=== PATIENT | male | born 1940 | race Caucasian/White ===

== ENCOUNTER 2020-01-21 09:32 | Emergency (ER) | payer BC, SELFPAY ==
[2020-01-21 09:50] VITALS: BP 166/97; PULSE 78; RESP 18; TEMP 36.6; O2SAT 100
--- NOTE | 2020-01-21 10:06 | ED.MALEGU ---
HPI - Male Genitourinary General Chief complaint: Urogenital-Male Stated complaint: Head of penis/redness/infected Time Seen by Provider: 01/21/20 10:08 Source: patient and RN notes reviewed Mode of arrival: ambulatory Limitations: no limitations History of Present Illness HPI Narrative: 79-year-old male presents with concern for red, sore penis. He reports red, sore head of his penis for 3 days. He denies dysuria, hematuria, frequency, penile discharge, testicular pain, testicular redness, testicular swelling. Reports the shaft of his penis is not affected. Denies exposure to STDs. Reports he wore an adult diaper and symptoms started after that. MD Complaint: other (Rash) Related Data Home Medications Medication Instructions Recorded Confirmed diazepam [Valium] 5 mg PO HS PRN 09/10/19 01/21/20 aspirin 81 mg PO DAILY 01/21/20 01/21/20 ezetimibe 10 mg PO DAILY 01/21/20 01/21/20 lisinopril-hydrochlorothiazide 1 tablet PO DAILY 01/21/20 01/21/20 metoprolol tartrate 50 mg PO DAILY 01/21/20 01/21/20 nitroglycerin 0.4 mg SUBLINGUAL ONCE 01/21/20 01/21/20 rosuvastatin 20 mg PO DAILY 01/21/20 01/21/20 Allergies Allergy/AdvReac Type Severity Reaction Status Date / Time Sulfa (Sulfonamide Allergy Unknown Unknown Verified 01/21/20 10:06 Antibiotics) Review of Systems Review of Systems: Narrative: CONSTITUTIONAL: Denies malaise, chills, sweats, or fever. GASTROINTESTINAL: Denies abdominal pain, nausea, vomiting, diarrhea, bloody, or mucous stools. GENITOURINARY: Denies dysuria, frequency, testicular pain, penile discharge, or hematuria. Reports penile swelling, redness, pain SKIN: Denies rash or itching. MUSCULOSKELETAL: Denies myalgia. All systems reviewed & are unremarkable except as noted in HPI and below PMFSH Social History Social History Smoking status: Never smoker Alcohol intake: current Gender identity (if verbalized by the patient): Male Comments At time of signature, agree with nursing past medical, surgical, social and family history. There is no relevant family history pertinent to the presenting complaint Exam Narrative: Exam Narrative: GENERAL: Well-appearing, well-nourished, and in no acute distress. HEAD: Normocephalic, atraumatic. EYES: PERRLA, conjunctivae clear ENT: Mucous membranes moist. NECK: Supple. CHEST: No respiratory distress. Speaks in full sentences. HEART: Regular rate and rhythm. SKIN: Warm, dry, no rash. NEURO: Alert and oriented x3. PSYCH: Normal mood and affect : Penis: Yes circumcised Meatus: meatus normal Scrotum: scrotum normal Testes: Testes normal Male genitals images: 1. Erythema, mild edema, honey colored crust. Course Course Emergency Course: Patient is aware of diagnosis, understands and agrees to treatment plan. Anticipatory guidance given. Patient agrees to follow-up as directed and is aware of reasons to seek care at the emergency department. Portions of this record may have been created with voice recognition software Vital Signs Vital signs: Vital Signs Temperature 97.8 F 01/21/20 09:50 Pulse Rate 78 01/21/20 09:50 Respiratory Rate 18 01/21/20 09:50 Blood Pressure 166/97 H 01/21/20 09:50 Pulse Oximetry 100 01/21/20 09:50 Temperature 97.8 F 01/21/20 09:50 Pulse Rate 78 01/21/20 09:50 Respiratory Rate 18 01/21/20 09:50 Blood Pressure 166/97 H 01/21/20 09:50 Pulse Oximetry 100 01/21/20 09:50 Reviewed. Patient has history of hypertension MDM - Male Genitourinary MDM Narrative Medical decision making narrative: Exam findings show no acute concerns or changes; patient is non-toxic appearing and is in no distress. Patient is appropriate for outpatient treatment and follow-up. Differential Diagnosis Differential diagnosis: Likely urinary tract infection, priapism, urethritis, epididymitis, genital herpes simplex and prostatitis Critical Care Ti
== END 2020-01-21 10:29 | disposition home or self-care (01) ==
PROVIDERS: Emergency Provider Nurse Practitioner; PCP Internal Medicine
DX: L01.00 Impetigo, unspecified (principal); E78.00 Pure hypercholesterolemia, unspecified; I10 Essential (primary) hypertension; F41.9 Anxiety disorder, unspecified
CPT/HCPCS: 99213; G0463

== ENCOUNTER 2020-04-30 09:11 | Emergency (ER) | payer BC, SELFPAY ==
[2020-04-30 09:30] VITALS: BP 105/69; PULSE 76; RESP 16; TEMP 36.4; O2SAT 100
--- NOTE | 2020-04-30 09:46 | ED.SKABFB ---
HPI - Skin/Abscess/Foreign Bdy General Chief complaint: Skin/Abscess/Foreign Body Stated complaint: spots on arm Time Seen by Provider: 04/30/20 09:35 Source: patient Mode of arrival: ambulatory Limitations: no limitations History of Present Illness HPI narrative: Nico Carmichael is a 79 yo male with PMH of hypertension, high cholesterol, small bowel obstruction, comes to express care with insect bites that are enlarged and itching. The current 1 started last night Related Data Home Medications Medication Instructions Recorded Confirmed aspirin 81 mg PO DAILY 04/30/20 04/30/20 diazepam [Valium] 5 mg PO DAILY 04/30/20 04/30/20 docusate sodium 100 mg PO DAILY 04/30/20 04/30/20 ezetimibe [Zetia] 10 mg PO DAILY 04/30/20 04/30/20 lisinopril-hydrochlorothiazide 1 tablet PO DAILY 04/30/20 04/30/20 [Zestoretic] metoprolol tartrate [Lopressor] 50 mg PO DAILY 04/30/20 04/30/20 rosuvastatin [Crestor] 20 mg PO DAILY 04/30/20 04/30/20 Allergies Allergy/AdvReac Type Severity Reaction Status Date / Time Sulfa (Sulfonamide Allergy Unknown Unknown Verified 04/30/20 09:37 Antibiotics) Review of Systems Review of Systems: Narrative: CONSTITUTIONAL: Denies fever, chills, sweats. EYES: Denies visual changes, redness, discharge. ENT: Denies rhinorrhea, congestion, sore throat, otalgia. CARDIOVASCULAR: Denies chest pain, palpitations, edema. RESPIRATORY: Denies dyspnea, wheezing, cough GASTROINTESTINAL: Denies abdominal pain, nausea, vomiting, diarrhea. GENITOURINARY: Denies dysuria, hematuria, abnormal discharge SKIN: Has itching and welts on arms, greater on left NEUROLOGIC: Denies numbness, or focal weakness. PSYCHIATRIC: Denies anxiety or depression. [facility] Family History Family History Other Hypertension Social History Social History Smoking status: Never smoker Alcohol intake: current Gender identity (if verbalized by the patient): Male Comments At time of signature, I agree with nursing past medical, surgical, social and family history. There is no relevant family history pertinent to the presenting complaint. Exam Narrative: Exam Narrative: GENERAL: This is a well-nourished, well-developed patient, in no distress. HEAD: normocephalic, atraumatic. EYES: Sclera clear/white. Vision is grossly intact. EARS: External ears normal, auditory canals clear and without drainage, TMs normal without perforation. Hearing grossly intact. NOSE: External nose normal without nasal discharge, nares without redness, no rhinorrhea. THROAT: Mucous membranes moist, NECK: Neck supple, r CARDIOVASCULAR: Regular rate and rhythm without murmurs, gallops, or rubs. RESPIRATORY: Clear to auscultation. Breath sounds equal bilaterally. No wheezes, rales, or rhonchi. GASTROINTESTINAL: Abdomen soft, non-tender, SKIN: warm, intact with 8 x 8 indurated red area on left arm, small bites on left and right arms and legs NEURO: awake, alert, and oriented to person, place and time. There were no obvious focal neurologic abnormalities. Steady gait EXTREMITIES: Normal range of motion. BACK: Nontender without deformity Course Course Emergency Course: Started on Benadryl and Claritin-continue with hydrocortisone and triple antibiotic ointment to the areas Vital Signs Vital signs: Vital Signs Temperature 97.5 F L 04/30/20 09:30 Pulse Rate 76 04/30/20 09:30 Respiratory Rate 16 04/30/20 09:30 Blood Pressure 105/69 04/30/20 09:30 Pulse Oximetry 100 04/30/20 09:30 Temperature 97.5 F L 04/30/20 09:30 Pulse Rate 76 04/30/20 09:30 Respiratory Rate 16 04/30/20 09:30 Blood Pressure 105/69 04/30/20 09:30 Pulse Oximetry 100 04/30/20 09:30 MDM - Skin/Abscess/Foreign Bdy Differential Diagnosis Differential diagnosis: Likely abscess of skin or subcutaneous tissue, urticaria, insect bites, contact dermatitis an
== END 2020-04-30 10:02 | disposition home or self-care (01) ==
PROVIDERS: Emergency Provider Nurse Practitioner; PCP Internal Medicine
DX: S50.862A Insect bite (nonvenomous) of left forearm, initial encounter (principal); W57.XXXA Bitten or stung by nonvenomous insect and other nonvenomous arthropods, initial encounter; I10 Essential (primary) hypertension; E78.00 Pure hypercholesterolemia, unspecified
CPT/HCPCS: 99213; G0463

== ENCOUNTER 2020-06-25 13:10 | Emergency (ER) | payer BC, SELFPAY ==
[2020-06-25 13:19] VITALS: BP 105/81; PULSE 86; RESP 20; TEMP 36.8; O2SAT 100
--- NOTE | 2020-06-25 13:43 | ED.GENADULT ---
HPI - General Adult General Chief complaint: Skin/Abscess/Foreign Body Stated complaint: rash Time Seen by Provider: 06/25/20 13:40 Source: patient Mode of arrival: ambulatory History of Present Illness HPI narrative: 79 years old white male complaining of severe itchy rash at the right arm and lateral side of the right hip started 6 7 weeks ago. Patient been using Zyrtec once a day for the last 30 days and [id number] antifungal cream without any improvement.. Patient denies any fever, chills, nausea, vomiting. Related Data Home Medications Medication Instructions Recorded Confirmed aspirin 81 mg PO DAILY 04/30/20 04/30/20 diazepam [Valium] 5 mg PO DAILY 04/30/20 04/30/20 docusate sodium 100 mg PO DAILY 04/30/20 04/30/20 ezetimibe [Zetia] 10 mg PO DAILY 04/30/20 04/30/20 lisinopril-hydrochlorothiazide 1 tablet PO DAILY 04/30/20 04/30/20 [Zestoretic] metoprolol tartrate [Lopressor] 50 mg PO DAILY 04/30/20 04/30/20 rosuvastatin [Crestor] 20 mg PO DAILY 04/30/20 04/30/20 Allergies Allergy/AdvReac Type Severity Reaction Status Date / Time Sulfa (Sulfonamide Allergy Unknown Unknown Verified 04/30/20 09:37 Antibiotics) [facility] Family History Family History Other Hypertension Social History Social History Smoking status: Never smoker Alcohol intake: current Gender identity (if verbalized by the patient): Male Exam Narrative: Exam Narrative: General appearance: Well-developed, well-nourished Skin: Normal color. Maculopapular rash right arm and lateral side of the right hip. Head: Normocephalic, nontraumatic Eyes: Clear conjunctiva ENT: Oropharynx normal, ears normal, nose normal Neck: Supple, nontender Chest and respiratory: Airway patent, no respiratory distress, no accessory muscle use Heart: Regular rate/rhythm Abdomen: Soft, nontender, no organomegaly, quiet bowel sounds Vascular: Normal peripheral pulses, normal capillary refill. Musculoskeletal: Normal range of motion, nontender back Neurologic: Alert and oriented ?3, [employer] is normal as tested, no gross motor deficit Course Course Emergency Course: Stable Vital Signs Vital signs: Vital Signs Temperature 36.8 C 06/25/20 13:19 Pulse Rate 86 06/25/20 13:19 Respiratory Rate 20 06/25/20 13:19 Blood Pressure 105/81 06/25/20 13:19 Pulse Oximetry 100 06/25/20 13:19 Temperature 36.8 C 06/25/20 13:19 Pulse Rate 86 06/25/20 13:19 Respiratory Rate 20 06/25/20 13:19 Blood Pressure 105/81 06/25/20 13:19 Pulse Oximetry 100 06/25/20 13:19 Medical Decision Making MDM Narrative Medical decision making narrative: Patient been having itching rash of unknown etiology for the last 6 to 7 weeks, been treated with Zyrtec and topical antifungal cream without any improvement. My plan to discharge patient on oral prednisone for 5 days and topical prednisone of triamcinolone 0.5%. Differential Diagnosis Differential Diagnosis: Contact dermatitis versus dermatitis of unknown etiology. Vital Signs Vital Signs: Vital Signs Temperature 36.8 C 06/25/20 13:19 Pulse Rate 86 06/25/20 13:19 Respiratory Rate 20 06/25/20 13:19 Blood Pressure 105/81 06/25/20 13:19 Pulse Oximetry 100 06/25/20 13:19 Temperature 36.8 C 06/25/20 13:19 Pulse Rate 86 06/25/20 13:19 Respiratory Rate 06/25/20 13:19 Blood Pressure 105/81 06/25/20 13:19 Pulse Oximetry 100 06/25/20 13:19 Critical Care Time Critical Care Time Critical Care Time: No Discharge Plan Discharge Clinical Impression: Dermatitis Patient Dispositio
[2020-06-25 14:33] VITALS: BP 132/68; PULSE 78; RESP 18; O2SAT 99
== END 2020-06-25 14:35 | disposition home or self-care (01) ==
PROVIDERS: Emergency Provider Emergency Medicine; PCP Internal Medicine
DX: L30.9 Dermatitis, unspecified (principal); Z79.82 Long term (current) use of aspirin; E78.00 Pure hypercholesterolemia, unspecified; I10 Essential (primary) hypertension; N40.0 Benign prostatic hyperplasia without lower urinary tract symptoms; F41.9 Anxiety disorder, unspecified
CPT/HCPCS: 99283

== ENCOUNTER 2020-11-25 02:23 | Observation (INO) | payer BC, SELFPAY ==
[2020-11-25] VITALS (20 sets, daily range): BP systolic 81–125; BP diastolic 53–81; PULSE 44–66; RESP 13–24; TEMP 35.8–36.8; O2SAT 95–100; BMI 18.1
--- NOTE | 2020-11-25 | ECHO_ITS ---
Patient Info Name: Nico Puri Body Age: 80 years : 1940 Gender: Male Ht: 69 in Wt: 123 lbs BSA: 1.64 m2 HR: 59 bpm BP: 125 / 81 mmHg Heart Rhythm: Atrial Fibrillation Technical Quality: Good Exam Date: 11/25/2020 4:01 PM Exam Location: [facility] Pulmonary Exam Room: 231 Patient Status: Outpatient Admit Date: 11/25/2020 Staff Ordering Physician: Hilton Lopez MD Printing Roller Handler: Zakia Bates RDCS Attending Provider: Hilton Lopez MD Exam Type: CA echo doppler color flow Study Info Indications - cad htn altered mental status afib svr Complete two-dimensional, color flow and Doppler transthoracic echocardiogram is performed. Summary 1. Complete two-dimensional, color flow and Doppler transthoracic echocardiogram is performed. 2. Left atrial chamber dimension is moderately enlarged. 3. Right atrial chamber dimension is mildly enlarged. 4. There is mild tricuspid valve regurgitation. 5. No pulmonary hypertension, estimated pulmonary arterial systolic pressure is 35 mmHg. 6. Left ventricular chamber size, and wall thickness are normal with no regional wall motion abnormalities with an estimated ejection fraction of 65-70%. There is basal inferior wall hypokinesis. Diastolic function is indeterminate. 7. Atrial fibrillation. Left Ventricle Left ventricular chamber dimension is normal. Left ventricular systolic function is normal, estimated at 65-70%. There is no increased left ventricular wall thickness. Left ventricular septal wall motion is normal. The left ventricular diastolic function is indeterminate. Left ventricular chamber size, and wall thickness are normal with no regional wall motion abnormalities with an estimated ejection fraction of 65-70%. There is basal inferior wall hypokinesis. Diastolic function is indeterminate. Right Ventricle Right ventricular chamber dimension is normal. Right ventricular systolic function is normal. Left Atria Left atrial chamber dimension is moderately enlarged. Right Atria Right atrial chamber dimension is mildly enlarged. Aortic Valve The aortic valve is trileaflet. There is mild aortic valve sclerosis. There is no aortic valve stenosis. There is no aortic valve regurgitation. Pulmonic Valve The pulmonic valve is normal. There is no pulmonic valve stenosis. There is no pulmonic regurgitation. Mitral Valve The mitral valve has normal leaflets. There is no mitral valve stenosis. There is trace mitral valve regurgitation. Tricuspid Valve The tricuspid valve leaflets are normal. There is no significant tricuspid valve stenosis. There is mild tricuspid valve regurgitation. No pulmonary hypertension, estimated pulmonary arterial systolic pressure is 35 mmHg. Pericardium/Pleural The pericardium appears normal. There is no pericardial effusion. Inferior Vena Cava Normal inferior vena cava with >50% collapse upon inspiration consistent with Empty right atrial pressure, 10 mmHg. Aorta The aortic root size at the sinus of Valsalva is normal. The prox ascending aorta size is normal. Left Ventricular Outflow Tract Name Value Normal LVOT 2D LVOT Diameter 2.0 cm LVOT Doppler ---
--- NOTE | ~2020-11-25 | XR_ITS ---
EXAMINATION: XR chest 2V DATE: 11/25/2020 13:31 INDICATION: Altered mental status. TECHNIQUE: Frontal and lateral views of the chest were obtained. COMPARISON: Chest 2 views 02/01/2019, CT abdomen and pelvis 02/01/2019 FINDINGS: There are airspace opacities in the lower lung zones. There is blunting of the posterior co stophrenic angles correlating with small diaphragmatic hernias containing fat on the prior CT. No ple ural effusion or pneumothorax. The heart size is normal. Median sternotomy wires and mediastinal surg ical clips are seen, likely from prior coronary artery bypass grafting. There are old healed rib frac tures bilaterally. IMPRESSION: 1. Airspace opacities in the lower lung zones, consistent with atelectasis versus pneumonia. Reviewed, dictated and finalized at location B. DISPATCHER IMPRESSION: 1. Airspace opacities in the lower lung zones, consistent with atelectasis vers us pneumonia.
--- NOTE | ~2020-11-25 | US_ITS ---
EXAMINATION: US right upper quadrant DATE: 11/25/2020 13:49 INDICATION: Abnormal liver function tests. TECHNIQUE: Multiple grayscale and Doppler ultrasound images of the abdomen were obtained. COMPARISON: CT abdomen and pelvis 02/01/2019 FINDINGS: The visualized portions of the head and body of the pancreas are normal. The liver is jay l without focal lesion. There is no liver surface nodularity. There is normal flow in main portal vei n. The gallbladder is absent. The common duct is normal and measures 5 mm. There are cysts in right k [place] measuring up to 5.6 cm. IMPRESSION: 1. No etiology for abnormal liver function tests. Reviewed, dictated and finalized at location B. WASHER
--- NOTE | ~2020-11-25 | CT_ITS ---
EXAMINATION: CT brain wo con EXAM DATE: 11/25/2020 03:13 INDICATION: Altered mental status. TECHNIQUE: Spiral CT of the head was performed without contrast. Axial, coronal and sagittal images were reviewed. The dose-length product (DLP) for this examination was 605.33 mGy-cm. The exposure w as tailored according to patient size, and iterative reconstruction (ASIR) was used as additional dos e reduction technique. Comparison is made to prior examination from 11/15/2017. FINDINGS: There is no acute intraparenchymal hemorrhage. No evidence of intraparenchymal brain mass lesion. No evidence of acute infarction. Please note that initial head CT has limited sensitivity f or small or acute infarctions. There is mild periventricular and subcortical hypodensity, nonspecific but probably related to small vessel ischemic disease. There is moderate prominence of the sulci a nd ventricles related to cerebral atrophy. There is intracranial carotid arteriosclerosis. There a re no extra-axial collections. There is no mass effect or midline shift. The orbits are unremarkabl e. Soft tissue is unremarkable. The visualized sinuses and mastoid air cells are well aerated. IMPRESSION: 1. No acute intracranial findings. 2. Chronic age related findings. Reviewed, dictated and finalized at location A. NIZATIONAL EFFECTIVENESS CONSULTANT
--- NOTE | 2020-11-25 02:33 | ECG_ITS ---
Measurements Intervals [place] Rate: 56 P: TN: 0 QRS: 31 QRSD: 149 T: 33 QT: 543 QTc: 525 Interpretive Statements ATRIAL FIBRILLATION WITH SLOW VENTRICULAR RESPONSE RIGHT BUNDLE BRANCH BLOCK BASELINE ARTIFACT- I, II, III, AVF, V3 ABNORMAL ECG Electronically Signed On 11-25-2020 7:13:28 SQL DBA by Hemant Astorga D.O.
--- NOTE | 2020-11-25 02:36 | ED.AMS ---
HPI - Altered Mental Status General Chief Complaint: Altered Mental Status Stated Complaint: confused for 9-10 days Time Seen by Provider: 11/25/20 02:24 History of Present Illness HPI narrative: History limited by mental status. The patient is confused and not able to provide reliable history. He says that he has not been able to for for 9 weeks, which is 18 days . His niece says that he was fine up until 10 days ago. Since that time he has been very confused. She says that he has a history of alcoholism, but has not had a drink in 1 month. No fever, chills, fall, vomiting. Related Data Home Medications Medication Instructions Recorded Confirmed aspirin 81 mg PO DAILY 04/30/20 04/30/20 diazepam [Valium] 5 mg PO DAILY 04/30/20 04/30/20 docusate sodium 100 mg PO DAILY 04/30/20 04/30/20 ezetimibe [Zetia] 10 mg PO DAILY 04/30/20 04/30/20 lisinopril-hydrochlorothiazide 1 tablet PO DAILY 04/30/20 04/30/20 [Zestoretic] metoprolol tartrate [Lopressor] 50 mg PO DAILY 04/30/20 04/30/20 rosuvastatin [Crestor] 20 mg PO DAILY 04/30/20 04/30/20 Allergies Allergy/AdvReac Type Severity Reaction Status Date / Time Sulfa (Sulfonamide Allergy Unknown Unknown Verified 04/30/20 09:37 Antibiotics) Review of Systems Review of Systems: ROS unobtainable: Yes unobtainable due to mental status [facility] Past Medical History Medical History (Updated 11/25/20 @ 04:50 by Curry Díaz MD) CAD (coronary artery disease) HTN (hypertension) Small bowel obstruction Family History Family History Other Hypertension Social History Social History Smoking status: Never smoker Alcohol intake: current Gender identity (if verbalized by the patient): Male Exam Const: General: no acute distress, alert and confusion Nutritional Appearance: thin Other: oriented x2 HENMT: Head: normal to inspection Eyes: Pupils: Equal, round and reactive pupils present Resp: Effort & Inspection: normal respiratory effort Auscultation: clear to auscultation bilaterally Cardio: Rate: bradycardic Rhythm: abnormal rhythm irregularly irregular GI: GI Palp: Yes Soft to palpation and No Tenderness to palpation present (GI) Skin: General skin exam: normal color Neuro: General: moves all extremities, no focal motor deficits and CN's II-XI intact bilaterally Speech: normal speech Extrem: General: no edema Psych: Appearance: disheveled Other: Rambling confused speech Course Vital Signs Vital signs: Vital Signs Temperature 36.8 C 11/25/20 02:31 Pulse Rate 62 11/25/20 02:31 Respiratory Rate 24 H 11/25/20 02:31 Blood Pressure 113/62 11/25/20 02:31 Pulse Oximetry 95 11/25/20 02:31 Temperature 36.8 C 11/25/20 02:31 Pulse Rate 44 L 11/25/20 04:17 Respiratory Rate 13 11/25/20 04:17 Blood Pressure 100/65 11/25/20 04:17 Pulse Oximetry 96 11/25/20 04:17 MDM - Altered Mental Status Differential Diagnosis Differential diagnosis: Likely alcoholic intoxication, delirium, dementia, hyponatremia, subarachnoid hemorrhage, sepsis and other (UTI, CVA) Medical Records Attestation: I reviewed the patient's medical records. Lab Data Attestation: I reviewed the patient's lab results. Result diagrams: 11/25/20 02:44 11/25/20 02:44 Labs: Lab Results 11/25/20 11/25/20 11/25/20 Range/Units 02:44 02:44 02:44 WBC 5.7 (4.5-10.0) K/mm3 RBC 4.72 (4.6-6.20) M/mm3 Hgb 14.9 (14.0-18.0) g/dL Hct 43.6 (42.0-52.0) % MCV 92.4 (80-100) fl MCH 31.6 (26-34) pg MCHC 34.2 (32-36) g/dl RDW 14.1 (11.5-14.5) % Plt Count 367 (150-375) k/mm3 MPV 9.4 (7.4-10.4) fl Immature Gran % (Auto) 0.4 (0-0.5) % Neut % (Auto) 63.3 (45.5-73.1) % Lymph % (Auto) 18.5 (18.3-44.2) % [place] % (Auto) 13.4 H (2.6-8.5) % Eos % (Auto) 4.0 (0-4.4) %
[2020-11-25] MEDS: SODIUM CHLORIDE 0.9% IV 1,000 ML 999 ML IV CONT ×2 (02:47→04:50)
[2020-11-25 02:51] LABS: Basophils Percent Auto 0.4 % (0.2-1.2); Eosinophils Absolute Auto 0.2 K/mm3 (0-0.3); Hematocrit 43.6 % (42.0-52.0); Hemoglobin 14.9 g/dL (14.0-18.0); Immature Granulocyte Absolute 0.02 K/mm3 (0.00-0.031); Immature Granulocyte Percent A 0.4 % (0-0.5); Lymphocytes Absolute Auto 1.05 K/mm3 (0.9-3.2); Lymphocytes Percent Auto 18.5 % (18.3-44.2); Mean Corpuscular HGB Conc 34.2 g/dl (32-36); Mean Corpuscular Hemoglobin 31.6 pg (26-34); Mean Corpuscular Volume 92.4 fl (80-100); Mean Platelet Volume 9.4 fl (7.4-10.4); Monocytes Absolute Auto 0.8 K/mm3 (0.1-0.6); Monocytes Percent Auto 13.4 % (2.6-8.5); Neutrophils Absolute Auto 3.6 K/mm3 (1.3-6.7); Neutrophils Percent Auto 63.3 % (45.5-73.1); Platelet Count Result 367 k/mm3 (150-375); Red Blood Count 4.72 M/mm3 (4.6-6.20); Red Cell Distribution Width 14.1 % (11.5-14.5); White Blood Count 5.7 K/mm3 (4.5-10.0)
[2020-11-25 02:59] LABS: INR 1.3; Prothrombin Time 16.8 Seconds (11.1-14.7)
[2020-11-25 03:00] LABS: Partial Thromboplastin Time 30.3 SECONDS (22.3-36.8)
[2020-11-25 03:05] LABS: Ammonia < 9 umol/L (9-30)
[2020-11-25 03:09] LABS: Alanine Aminotransferase 204 U/L (4-50); Albumin Level 3.8 g/dL (3.5-5.1); Alkaline Phosphatase 82 U/L (38-126); Anion Gap 6 mmol/L (8-16); Aspartate Amino Transferase 285 U/L (17-59); Bilirubin,Total 0.7 mg/dL (0.2-1.3); Blood Urea Nitrogen 41 mg/dL (9-20); Calcium 9.9 mg/dL (8.4-10.2); Carbon Dioxide 28 mmol/L (22-30); Chloride 97 mmol/L (98-107); Creatine Kinase 37 U/L (55-170); Estimated CRCL calculation 36 ml/min; Estimated Glomerular Filt Rate > 60; Glucose 120 mg/dL (75-110); Lactic Acid Reflex 1.5 mmol/L (0.7-2.1); Potassium 3.4 mmol/L (3.4-5.0); Sodium 131 mmol/L (137-145)
[2020-11-25 03:31] LABS: Add Urine Microscopic? YES; Appearance Urine Cloudy (Clear); Bacteria Urine Trace /hpf; Bilirubin Urine Negative (Negative); Blood Urine 1+ (Negative); Color Urine Amber (Yellow); Glucose Urine UA Negative (Negative); Ketones Urine Negative (Negative); Leukocyte Esterase Ur Negative LEU/UL (Negative); Mucus Urine Heavy /lpf; Nitrate Urine Negative (Negative); Protein Urine 1+ mg/dL (Negative); Specific Grav Ur 1.021 (1.001-1.035); Squamous Epithelial Cell Urine Occasional /hpf (Few); Urobilinogen Urine Negative mg/dL (<2.0)
[2020-11-25] MEDS: THIAMINE HCL 200 MG/2 ML VIAL 100 MG IV PUSH (04:50)
[2020-11-25] MEDS: LACTATED RINGERS 1,000 ML 125 ML IV CONT ×2 (06:09→18:34)
--- NOTE | 2020-11-25 08:30 | ADMGEN ---
This patient, Nico Carmichael, was admitted to IMU Room 231-01. Patient/family oriented to hospital policies and general routines including ID bracelet, bed and alarms, visiting hours, pain management, procedures, bathroom and other care routines, personal items, smoking policy, room service/diet, and visiting hours. Information on how to activate the Rapid Response Team has been discussed. Patient/Family are encouraged to report perceived risks to care and to ask questions if they do not understand what they are told or what they should do.
--- NOTE | 2020-11-25 12:00 | PM.IMHP ---
H&P: HPI History of Present Illness Date/Time: 11/25/20 12:00 PATIENT IS PLACED IN OBSERVATION Chief Complaint: Dizziness Narrative: Nico Carmichael is a 80 year old male with CAD, HTN and alcoholism here for altered mental status. Patient is more alert since admission and provides the following history. Patient was feeling well up until 10 days ago when he developed dizziness and fatigue. The dizziness is mostly when he stands up and he feels lightheaded. Denies vertigo symptoms. He has had decreased appetite. He has been on mostly on a liquid diet. He has had slight nausea but no vomiting. No diarrhea but stool was a been loose. Does have a cough productive of ?light orange? sputum but no hemoptysis. No chest pain or palpitations. He has been compliant with his home medications. No odynophagia or dysphagia but does states that he is ?scared? about eating. He states he cannot eat meat because it is ?hard to digest?. He is vague on this symptom but denies abdominal pain after eating. No fever or chills. He has had weight loss. His last colonoscopy listed was 2016 with polypectomy. He has had normal urine output but has had urinary frequency. He states he started a new medication for urinary frequency 6 days ago but denies that this is an antibiotic. No other new medications. He does have dysuria off and on but this is more chronic. No hematuria. He complains of headache and back aches which is more chronic. He has had weakness ?all over?. Patient presented to the emergency room for evaluation and there was noted to have altered mental status. Patient does have a history of alcoholism and states that he drinks a 6 pack a day but his last drink was about 10 days ago. In the emergency room, patient was hemodynamically stable. His liver enzymes were elevated with an AST of 285 and ALT of 204. His BUN was 41 creatinine 1.1. White count was normal. Lactic acid level was normal. EKG shows atrial fibrillation. Brain CT showing no acute findings. Patient was given thiamine and IV fluid and admitted for further care. Patient currently is alert oriented x3 (he thought it was December). Review of Systems Review of Systems: All systems reviewed & are unremarkable except as noted in HPI and below [facility] Past Medical History Medical History (Updated 11/26/20 @ 13:42 by Florence Arreola MD) Alcohol abuse Atrial fibrillation, chronic CAD (coronary artery disease) HTN (hypertension) Hyperlipidemia Small bowel obstruction Surgical History Surgical History History of appendectomy History of intestinal surgery when he was 3 weeks old Hx of CABG x3v Hx of cholecystectomy Hx of exploratory laparotomy February 2019 for the SBO Family History Family History Father Cancer Other Hypertension Social History Social History Social History: Patient is a full code. He lives alone. He has never smoked. Alcohol use as mentioned above. Denies drug use. He is retired. Smoking status: Never smoker Alcohol intake: current Drinks per week: 15 Substance use: never Gender identity (if verbalized by the patient): Male Spiritual care concerns: No Meds Home Medications and Allergies Home Medications Medication Instructions Recorded Confirmed Type aspirin 81 mg PO DAILY 04/30/20 11/25/20 History cetirizine [All Day Allergy 10 mg PO DAILY #30 cap 04/30/20 11/25/20 Rx (cetirizine)] diazepam [Valium] 5 mg PO DAILY 04/30/20 11/25/20 History diphenhydramine HCl [Benadryl] 25 mg PO TID PRN #30 cap 04/30/20 11/25/20 Rx docusate sodium 100 mg PO DAILY 04/30/20 11/25/20 History ezetimibe [Zetia] 10 mg PO DAILY 04/30/20 11/25/20 History hydrocortisone [Cortaid] 1 applic TOPICAL TID PRN #14.2 gm 04/30/20 11/25/20 Rx lisinopril-hydrochlorothiazide 1 tablet PO
--- NOTE | 2020-11-25 17:54 | PM.CNCAR ---
Assessment and Plan Assessment and plan (1) Atrial fibrillation with slow ventricular response: Code(s): I48.91 - Unspecified atrial fibrillation Status: Acute Assessment and Plan: Patient has had AFib since 2017 and he has been noted to have a bradycardic response at times. Agree with holding metoprolol. I do not think the patient's bradycardia is causing all of his dizziness and weakness however. Agree that he seems a poor candidate for anticoagulation. Will follow. (2) Acute renal failure: Code(s): N17.9 - Acute kidney failure, unspecified Status: Acute Assessment and Plan: Poor p.o. intake with elevated BUN and creatinine, appears dehydrated. Getting IV fluids. BMP in the morning, especially since he has hypokalemia and hyponatremia. (3) Dehydration: Code(s): E86.0 - Dehydration Status: Acute Assessment and Plan: Anorexic recently. Receiving IV fluids. (4) Dizziness: Code(s): R42 - Dizziness and giddiness Status: Acute Assessment and Plan: Dizziness and weakness, secondary to dehydration and mild bradycardia. (5) Hypotension: Code(s): I95.9 - Hypotension, unspecified Status: Acute Assessment and Plan: Dehydrated, getting IV fluids. Nothing to suggest an acute infection. (6) Elevated LFTs: Code(s): R79.89 - Other specified abnormal findings of blood chemistry Status: Acute Assessment and Plan: CONWAY in progress. US RUQ unremarkable. Alcoholic hepatitis? (7) Alcohol abuse: Code(s): F10.10 - Alcohol abuse, uncomplicated Status: Acute (8) HTN (hypertension): Code(s): I10 - Essential (primary) hypertension Status: Acute (9) CAD (coronary artery disease): Code(s): I25.10 - Atherosclerotic heart disease of [place] coronary artery without angina pectoris Status: Inactive Assessment and Plan: History of CAD and remote CABG, stable with no angina. Echo pending. 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 Continue aspirin, hold rosuvastatin for now because of elevated LFTs. History of Present Illness History of Present Illness Consult date/time: 11/25/20 17:54 Requesting physician: Hilton Lopez MD Consult reason: atrial fibrillation (And bradycardia) Reason For Visit: Altered mental status/failure to thrive/bradycardi Narrative: Mr. Nico Loya is an 80-year-old white male whom we were asked to see at the request of Dr. Lopez for our advice and opinion regarding his atrial fibrillation and bradycardia. PMD is Dr. Man Brower in [place]. The emergency room with confusion, weakness, anorexia, dizziness, dehydration, orthostasis, elevated LFTs. He has history of alcohol abuse and chronic atrial fibrillation. He was bradycardic with a heart rate in the 40s; home medications include metoprolol which was held. He also has a soft blood pressure ranging from 80-105 mmHg. He has been given some IV fluids. He states he gives himself his own medications but does not know what he takes 5 medicines. Denies any history of heart disease. Dr. Gomez saw the patient when he was hospitalized in 2017 and 2019 for AFib sometimes with a slow ventricular response. He has a history of CABG in 1993 and angioplasty around 2006. He was followed by Dr. 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 He has not been anticoagulated because of his falls alcoholism and noncompliance. Says his last drink was about 12 days ago and he drinks about 5-6 beers a day. Review of Systems Constitutional: Constitutional: Reports fatigue and Reports weakness Eyes: Eyes: Reports no additional eye complaints ENT
[2020-11-26] VITALS (14 sets, daily range): BP systolic 90–117; BP diastolic 42–80; PULSE 40–84; RESP 16–20; TEMP 35.6–36.6; O2SAT 94–100
[2020-11-26] MEDS: LACTATED RINGERS 1,000 ML 125 ML IV CONT ×2 (03:22→11:33)
[2020-11-26 08:06] LABS: Basophils Percent Auto 0.8 % (0.2-1.2); Eosinophils Absolute Auto 0.2 K/mm3 (0-0.3); Eosinophils Percent Auto 4.2 % (0-4.4); Hematocrit 37.7 % (42.0-52.0); Hemoglobin 13.2 g/dL (14.0-18.0); Immature Granulocyte Absolute 0.02 K/mm3 (0.00-0.031); Immature Granulocyte Percent A 0.4 % (0-0.5); Lymphocytes Percent Auto 14.1 % (18.3-44.2); Mean Corpuscular Hemoglobin 31.2 pg (26-34); Mean Corpuscular Volume 89.1 fl (80-100); Mean Platelet Volume 9.2 fl (7.4-10.4); Monocytes Absolute Auto 0.7 K/mm3 (0.1-0.6); Monocytes Percent Auto 13.7 % (2.6-8.5); Neutrophils Absolute Auto 3.3 K/mm3 (1.3-6.7); Neutrophils Percent Auto 66.8 % (45.5-73.1); Platelet Count Result 417 k/mm3 (150-375); Red Blood Count 4.23 M/mm3 (4.6-6.20); Red Cell Distribution Width 13.6 % (11.5-14.5)
[2020-11-26 08:17] LABS: Ammonia < 9 umol/L (9-30)
[2020-11-26 08:22] LABS: Alanine Aminotransferase 90 U/L (4-50); Albumin Level 2.8 g/dL (3.5-5.1); Alkaline Phosphatase 73 U/L (38-126); Anion Gap 3 mmol/L (8-16); Aspartate Amino Transferase 68 U/L (17-59); Bilirubin,Total 0.5 mg/dL (0.2-1.3); Blood Urea Nitrogen 12 mg/dL (9-20); Calcium 8.9 mg/dL (8.4-10.2); Carbon Dioxide 26 mmol/L (22-30); Chloride 108 mmol/L (98-107); Estimated CRCL calculation 75 ml/min; Estimated Glomerular Filt Rate > 60; Glucose 100 mg/dL (75-110); Potassium 3.2 mmol/L (3.4-5.0); Sodium 137 mmol/L (137-145)
[2020-11-26 09:12] LABS: Hepatitis B Surface Antigen Negative (Negative)
[2020-11-26 09:17] LABS: HAV RESULT Negative (Negative); Hepatitis B Core IgM Result Negative (Negative)
[2020-11-26 09:24] LABS: Folic Acid 13.8 ng/mL (2.76->20)
[2020-11-26 09:29] LABS: Hepatitis C Virus Antibody Negative (Negative)
[2020-11-26] MEDS: ASPIRIN 81 MG CHEWABLE TABLET PO (11:34)
[2020-11-26] MEDS: THERAPEUTIC MULTIVITAMINS/MINERALS TAB (*BKC) 1 TABLET PO (11:35)
[2020-11-26] MEDS: FOLIC ACID 1 MG TABLET PO (11:35)
[2020-11-26] MEDS: THIAMINE HCL 100 MG TABLET PO (11:35)
[2020-11-26] MEDS: EZETIMIBE 10 MG TABLET PO (11:35)
[2020-11-26] MEDS: ENOXAPARIN 40 MG/0.4 ML SYRINGE SUB-Q (11:35)
[2020-11-26] MEDS: diazePAM (*CRX) 5 MG TABLET PO (11:35)
[2020-11-26] MEDS: LORATADINE 10 MG TABLET PO (11:35)
--- NOTE | 2020-11-26 12:33 | PM.PNCARD ---
Progress Note: A&P Assessment and Plan (1) Atrial fibrillation with slow ventricular response: Code(s): I48.91 - Unspecified atrial fibrillation Status: Acute Assessment and Plan: Patient has had AFib since 2017 and he has been noted to have a bradycardic response at times. metoprolol held since admission. Still mildly bradycardic at times. I do not think the patient's bradycardia is causing all of his dizziness and weakness however. Don't see a need for a pacemaker at this point. Agree that he seems a poor candidate for anticoagulation. (2) Dehydration: Code(s): E86.0 - Dehydration Status: Acute Assessment and Plan: Anorexic recently. Improved after receiving IV fluids. Still anorexic; no specific problems found. Discussed w/ Dr. Lopez; OK to move to medical floor w/ Tele, prob DC tmr, prob to a rehab facility. (3) Hypotension: Code(s): I95.9 - Hypotension, unspecified Status: Acute Assessment and Plan: Improved after IV fluids. (4) Elevated LFTs: Code(s): R79.89 - Other specified abnormal findings of blood chemistry Status: Acute Assessment and Plan: CONWAY in progress. US RUQ unremarkable. Alcoholic hepatitis? (5) Acute renal failure: Code(s): N17.9 - Acute kidney failure, unspecified Status: Acute Assessment and Plan: Poor p.o. intake with elevated BUN and creatinine, appears dehydrated. Improved after IV fluids. (6) Dizziness: Code(s): R42 - Dizziness and giddiness Status: Acute Assessment and Plan: Dizziness and weakness, secondary to dehydration and mild bradycardia. (7) Alcohol abuse: Code(s): F10.10 - Alcohol abuse, uncomplicated Status: Acute (8) HTN (hypertension): Code(s): I10 - Essential (primary) hypertension Status: Acute (9) CAD (coronary artery disease): Code(s): I25.10 - Atherosclerotic heart disease of [place] coronary artery without angina pectoris Status: Inactive Assessment and Plan: History of CAD and remote CABG, stable with no angina. 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 Continue aspirin, hold rosuvastatin for now because of elevated LFTs, Zetia continued. (10) Hypokalemia: Code(s): E87.6 - Hypokalemia Status: Acute Assessment and Plan: Supplement and check tmr. Subjective Date/time seen: 11/26/20 12:33 Follow-up for bradycardia and chronic atrial fibrillation. Patient has a history of atrial fibrillation with bradycardia on beta-blockers. Metoprolol was held. He also has acute renal failure secondary to dehydration, dizziness, hypotension, confusion elevated LFTs and alcohol abuse. History of CAD and remote CABG, stable. Echo: EF 65-70%. There is basal inferior wall hypokinesis. MIld MR/TR. Biatrial enlargment. Interval history: Date of service 11/26/2020: Pt has been walking a little dixxy, feels legs are still weak. Appetite still poor. Nurses were concerned that the patient's heart rate dropped into the 30s at times overnight. Order for p.r.n. atropine provided. In general telemetry shows heart rate in the 50s today, occ dips to upper 30's briefly, pauses of < 2.5 sec. Received IV fluids yesterday, with 3100 cc in and 650 cc out. Blood pressure is better today. Review of Systems Constitutional: Constitutional: Reports fatigue, Reports lethargy and Reports weakness Eyes: Eyes: Reports no additional eye complaints ENT: Denies Normal hearing present (mildly [place]) Cardiovascular: Cardiovascular: Denies chest pain, Denies pedal edema
--- NOTE | 2020-11-26 13:32 | PM.IMPN ---
Progress Note: A&P Assessment and Plan (1) Dizziness: Code(s): R42 - Dizziness and giddiness Status: Acute Assessment and Plan: Patient with dizziness with standing. SBP drops from 105 to 81 with standing. [place] related to dehydration; he was on a diuretic and with poor oral intake. Contineu to hold hydrochlorothiazide at this time. He also has bradycardia and metoprolol held as well. Symptoms not felt related to bradycardia. (2) Elevated LFTs: Code(s): R79.89 - Other specified abnormal findings of blood chemistry Status: Acute Assessment and Plan: AST and ALT are elevated on admission at 285 and 204 respectfully. He admits to continued alcohol use. Hepatitis panel negative. RUQ US showing no acute findings. He is also on Crestor. Crestor held. Repeat levels better at 68 and 90. Continue to follow. (3) Alcohol abuse: Code(s): F10.10 - Alcohol abuse, uncomplicated Status: Acute Assessment and Plan: Patient was educated about the benefits of abstain from alcohol use. CIWA 2-5. Continue thiamine and folate. He will continue his Valium and have Librium available as needed for signs or symptoms of withdrawal. (4) Atrial fibrillation, chronic: Code(s): I48.20 - Chronic atrial fibrillation, unspecified Status: Acute Assessment and Plan: Patient with chronic atrial fibrillation as far back as 2018. Not on long-term anticoagulation most likely related to his alcoholism and history of falls. Echo showing EF 65%. Apnea link noted - could be contributing to his bradycardia. He is still having bradycardia and will continue to hold his metoprolol. (5) Altered mental status: Qualifiers: Altered mental status type: unspecified Qualified Code(s): R41.82 - Altered mental status, unspecified Code(s): R41.82 - Altered mental status, unspecified Status: Acute Assessment and Plan: Mental status appears to be improved at this time. CT of the brain showing no acute findings. TSH and B12 normal. Improvement related to the IV fluids and improvement in his dehydration. Follow renal function. Continue to monitor. (6) Adult failure to thrive: Code(s): R62.7 - Adult failure to thrive Status: Acute Assessment and Plan: Unclear why is not eating solid foods. Denies pain with eating to suggest pancreatitis or intestinal angina. Had a colonoscopy in 2017. Continue supplements. Contineu to monitor. (7) HTN (hypertension): Code(s): I10 - Essential (primary) hypertension Status: Acute Assessment and Plan: Blood pressure stable. Blood pressure has improved since admission with IV fluids. Will continue to hold his antihypertensive medications. Repeat orthostatic VS (8) DVT prophylaxis: Code(s): Z29.9 - Encounter for prophylactic measures, unspecified Status: Acute Assessment and Plan: Lovenox Subjective Date/time seen: 11/26/20 13:32 Interval history: Date of service 11/26 80yo male with CAD, HTN and alcoholism here for dizziness. Still feel dizzy mostly with standing. Feels weak. Walking with walker in halls. Toelrating oral intake but only taking Ensure. Exam Narrative: Exam Narrative: AF 97.5 115/68 56 18 100% ra Gen - NARD Chest - CTA bilaterally, nml RR CV - irregularly irregular, bradycardic. Tele showing pauses of 2 sec and bradycardia Abd - soft, NT/ND, +BS Ext - no pedal edema Psych - normal mood and affect. Patient is pleasant and cooperative. Skin - warm and dry. Objective Data Vital Signs Vital Signs: Vital Signs - 24 hr 11/25/20 14:00 11/25/20 16:00 11/25/20 17:16 Temperature 96.5 F L Pulse Rate 56 L 59 L 58 L Respiratory Rate 18 Blood Pressure 105/57 L Pulse Oximetry 100 11/25/20 17:18 11/25/20 17:19 11/25/20 18:00 Temperature 96.5 F L Pulse Rate 58 L 54 L Respiratory Rate 18
[2020-11-26] MEDS: POTASSIUM CHLORIDE 20 MEQ TABLET 40 MEQ PO (15:33)
[2020-11-27] VITALS: BP 115/71; PULSE 52; PULSE 58
[2020-11-27] MEDS: chlordiazePOXIDE (*CRX) 10 MG CAPSULE PO (00:25)
[2020-11-27 04:00] VITALS: PULSE 57
[2020-11-27 04:49] LABS: Basophils Absolute Auto 0.1 K/mm3 (0.0-0.1); Basophils Percent Auto 0.9 % (0.2-1.2); Eosinophils Absolute Auto 0.3 K/mm3 (0-0.3); Eosinophils Percent Auto 4.7 % (0-4.4); Hematocrit 35.5 % (42.0-52.0); Hemoglobin 12.5 g/dL (14.0-18.0); Immature Granulocyte Absolute 0.02 K/mm3 (0.00-0.031); Immature Granulocyte Percent A 0.4 % (0-0.5); Lymphocytes Absolute Auto 0.91 K/mm3 (0.9-3.2); Lymphocytes Percent Auto 16.3 % (18.3-44.2); Mean Corpuscular HGB Conc 35.2 g/dl (32-36); Mean Corpuscular Hemoglobin 31.6 pg (26-34); Mean Corpuscular Volume 89.6 fl (80-100); Monocytes Absolute Auto 0.7 K/mm3 (0.1-0.6); Monocytes Percent Auto 13.3 % (2.6-8.5); Neutrophils Absolute Auto 3.6 K/mm3 (1.3-6.7); Neutrophils Percent Auto 64.4 % (45.5-73.1); Platelet Count Result 446 k/mm3 (150-375); Red Blood Count 3.96 M/mm3 (4.6-6.20); Red Cell Distribution Width 13.9 % (11.5-14.5); White Blood Count 5.6 K/mm3 (4.5-10.0)
[2020-11-27 05:03] LABS: Alanine Aminotransferase 67 U/L (4-50); Albumin Level 2.7 g/dL (3.5-5.1); Alkaline Phosphatase 72 U/L (38-126); Anion Gap 1 mmol/L (8-16); Aspartate Amino Transferase 43 U/L (17-59); Bilirubin,Total 0.4 mg/dL (0.2-1.3); Blood Urea Nitrogen 8 mg/dL (9-20); Calcium 8.8 mg/dL (8.4-10.2); Carbon Dioxide 30 mmol/L (22-30); Chloride 105 mmol/L (98-107); Estimated CRCL calculation 75 ml/min; Estimated Glomerular Filt Rate > 60; Glucose 103 mg/dL (75-110); Magnesium 1.4 mg/dL (1.6-2.3); Potassium 3.6 mmol/L (3.4-5.0); Sodium 136 mmol/L (137-145)
[2020-11-27 08:00] VITALS: BP 112/75; PULSE 45; PULSE 61; RESP 18; TEMP 36.6; O2SAT 97
--- NOTE | 2020-11-27 09:03 | PM.PNCARD ---
Progress Note: A&P Additional Plan 80-year-old man with: Chronic atrial fibrillation with rather slow ventricular response although he appears to be hemodynamically stable with this. As mentioned in previous notes pacemaker implantation at this point is not indicated. As we have no other cardiac complaints in as he has cardiac care established elsewhere I am going to sign off of his inpatient follow-up at this time. Please call me if we are needed during this hospitalization but since he has cardiology care elsewhere I will not anticipate arranging for appointments in our office. Otoniel Rosario MD 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 He is unusually bradycardic but essentially asymptomatic and has Dr. Arreola indicated in her previous note at this point does not require implantation of a cardiac pacemaker. Systemic anticoagulation is also not being provided because of alcoholism. No active cardiac complaints this morning. Exam Narrative: Exam Narrative: Under white somewhat disheveled older male who is pleasant and conversant, no distress Const: General: comfortable, no acute distress and confusion Orientation/consciousness: confusion HENMT: General nose exam: no epistaxis Mouth: Yes moist mucous membranes and Yes dry mucous membranes Eyes: EOM: EOMs intact bilaterally Neck: Neck: supple and no JVD Thyroid: thyroid normal Carotids: no bruits Lymphatic: lymphadenopathy not noted Resp: Effort & Inspection: normal respiratory effort Auscultation: clear to auscultation bilaterally Cardio: Rate: bradycardic Rhythm: regular rhythm and abnormal rhythm irregularly irregular Heart sounds: Murmur heart sound present (1/6 CLAUDIO at the left upper sternal border and apex) Other: Diminished pedal pulses GI: Inspection: non-distended Auscultation: normal bowel sounds Skin: General skin exam: normal color and no rashes or lesions noted Neuro: General: confusion Cranial nerves: No Normal hearing present (mildly [place]) Cognition (Neuro): normal cognition (mild memory impairment) and normal cognition Speech: normal speech Motor exam (neuro): Normal motor muscle tone present throughout Other: Patient is oriented to [facility], November 25, 2020 but not entirely to his situation and he is an unreliable historian stating he has never had heart any kind of heart trouble. He did not know why he had his sternal scar, thought perhaps it was from some broken ribs. Extrem: General: no edema and no pedal edema Psych: Mental Status: mental status grossly normal Affect: normal affect Objective Data Vital Signs Vital Signs: Vital Signs - 24 hr 11/26/20 10:00 11/26/20 12:00 11/26/20 13:35 Temperature 36.4 C L Pulse Rate 84 51 L Pulse Rate [Monitor] Respiratory Rate 18 Blood Pressure 115/68 115/70 Pulse Oximetry 100 11/26/20 14:00 11/26/20 16:00 11/26/20 18:00 Temperature 35.6 C L Pulse Rate 53 L 41 L 45 L Pulse Rate [Monitor] Respiratory Rate 20 Blood Pressure 91/61 L 104/58 L Pulse Oximetry 99 11/26/20 19:50 11/26/20 20:00 11/26/20 23:23 Temperature 36.4 C L 36.5 C Pulse Rate 52 L 54 L 52 L Pulse Rate [Monitor] 54 L Respiratory Rate 16 16 Blood Pressure 108/74 108/74 115/71 Pulse Oximetry 99 100 11/27/20 00:00 11/27/20 04:00 11/27/20 08:00 Temperature 36.6 C Pulse Rate 58 L 57 L 61 Pulse Rate [Monitor] 52 L 57 L Respiratory Rate 18 Blood Pressure 115/71 112/75 Pulse Oximetry 97 Intake/Output Intake/Output: Intake & Output 11/24/20 11/25/20 11/26/20 11/27/20 23:59 23:59 23:59 23:59 Intake Total 3100 3310 550 Output Total 650 950 700 Balance 2450 2360 -150 Meds/Results Medications: Active Medications Generic
[2020-11-27] MEDS: THIAMINE HCL 100 MG TABLET PO (09:42)
[2020-11-27] MEDS: ASPIRIN 81 MG CHEWABLE TABLET PO (09:42)
[2020-11-27] MEDS: EZETIMIBE 10 MG TABLET PO (09:42)
[2020-11-27] MEDS: FOLIC ACID 1 MG TABLET PO (09:43)
[2020-11-27] MEDS: LORATADINE 10 MG TABLET PO (09:43)
[2020-11-27] MEDS: ENOXAPARIN 40 MG/0.4 ML SYRINGE SUB-Q (09:43)
[2020-11-27] MEDS: THERAPEUTIC MULTIVITAMINS/MINERALS TAB (*BKC) 1 TABLET PO (09:43)
[2020-11-27] MEDS: diazePAM (*CRX) 5 MG TABLET PO (09:45)
--- NOTE | 2020-11-27 10:57 | PCDIET ---
Nutrition Follow-Up Complete: Nutrition Diagnosis: Underweight related to weight loss as evidenced by BMI 18.2 with 17 pound weight loss x 10 months. Nutrition Goal: Patient to consume 75% of meals/supplements or greater and maintain weight. Goal in progress. Average intake since admission is 39% of meals, but patient has consumed 75% of two previous meals. 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 Does report taking Ensure Compact and would be agreeable to Ensure Enlive. Recommend Ensure Enlive (350kcal, 20g protein) BID. Heart healthy diet appropriate at this time, though regular, unrestricted diet may optimize intake. Small, frequent meals encouraged. Recommend magnesium replacement, if medically appropriate. Last recorded weight is 58.5 kg which is increased from last review. Bowel Motility: No documented BM. Labs Reviewed: Hgb (12.5), Hct (35.5), BUN (8), Cr (0.5), Na (136), Alb (2.7), Mg (1.4) Meds Noted: Folic Acid, Thiamine, MVI/minerals Additional Notes: No documented skin breakdown. Will continue to monitor with same goal. Nutrition Monitoring and Evaluation: Follow up in 5 days.
[2020-11-27 12:00] VITALS: PULSE 60
--- NOTE | 2020-11-27 14:25 | PM.DS ---
DS: Admitting Diagnosis Admitting Diagnosis Admitting Diagnosis: dizziness DS: Discharge Diagnosis Discharge Diagnosis (1) Dizziness: Code(s): R42 - Dizziness and giddiness Status: Acute Assessment and Plan: Patient with dizziness with standing. SBP drops from 105 to 81 with standing. [place] related to dehydration; he was on a diuretic and with poor oral intake. We held his hydrochlorothiazide and started on IV fluids. Orthostatic vital signs better so fluids stopped. He also has bradycardia and so his metoprolol held as well. Cardiology did see the patietn and did not feel the dizziness felt related to bradycardia. (2) Elevated LFTs: Code(s): R79.89 - Other specified abnormal findings of blood chemistry Status: Acute Assessment and Plan: AST and ALT are elevated on admission at 285 and 204 respectfully. He admits to continued alcohol use. Hepatitis panel negative. RUQ US showing no acute findings. He is also on Crestor. Crestor held. Repeat levels better at 43 and 67 respectfully. Resume Crestor and repeat LFTs as outpatient (3) Alcohol abuse: Code(s): F10.10 - Alcohol abuse, uncomplicated Status: Acute Assessment and Plan: Patient was educated about the benefits of abstain from alcohol use. CIWA 2-5 range. Treated with thiamine and folate. We continued his home Valium and had Librium available as needed for signs or symptoms of withdrawal. (4) Atrial fibrillation, chronic: Code(s): I48.20 - Chronic atrial fibrillation, unspecified Status: Acute Assessment and Plan: Patient with chronic atrial fibrillation as far back as 2018. Not on long-term anticoagulation most likely related to his alcoholism and history of falls. Echo showing EF 65%. He also has long hx of bradycardia and comes in on Metoprolol despite this hx. Apnea link noted - could be contributing to his bradycardia. Metoprolol stopped. He is still having bradycardia and will continue to hold his metoprolol. (5) Altered mental status: Qualifiers: Altered mental status type: unspecified Qualified Code(s): R41.82 - Altered mental status, unspecified Code(s): R41.82 - Altered mental status, unspecified Status: Acute Assessment and Plan: Mental status appears to be improved at this time. CT of the brain showing no acute findings. TSH and B12 normal. Improvement related to the IV fluids and improvement in his dehydration. (6) Adult failure to thrive: Code(s): R62.7 - Adult failure to thrive Status: Acute Assessment and Plan: Unclear why is not eating solid foods. He states he has been unable to eat meat for many, many years. Denies pain with eating to suggest pancreatitis or intestinal angina. Had a colonoscopy in 2017. Started on supplements. Encouraged patient to eat. (7) HTN (hypertension): Code(s): I10 - Essential (primary) hypertension Status: Acute Assessment and Plan: Blood pressure has improved since admission with IV fluids. We held his antihypertensive medications. DS: Summary Hospital Course Reason for hospitalization: 80yo male with CAD, HTN and alcoholism here for dizziness. Please see H&P for details Hospital Course: Please see above for details of hospital course. Status at Discharge Cognitive/behavioral status at discharge: Patient is stable for discharge Time Spent with Patient Time attestation: Total time spent providing and/or coordinating discharge services: 35 minutes Time spent: Greater than 30 minutes Exam Narrative: Exam Narrative: AF 98.0 112/75 60 18 97% ra Gen - NARD Chest - CTA bilaterally, nml RR CV - irregularly irregular, bradycardic. Tele showing persistent bradycardia Abd - soft, NT/ND, +BS Ext - no pedal edema Psych - normal mood and affect. Patient is pleasant and cooperative. Skin - warm and dry. DS: Data Data Complete
[2020-11-27 16:00] VITALS: BP 133/82; PULSE 98; RESP 18; TEMP 36.3; O2SAT 100
[2020-11-27] MEDS: MAGNESIUM OXIDE 400 MG TABLET PO (16:43)
== END 2020-11-27 17:15 | disposition home or self-care (01) ==
LOC: ANHED 04:50 → ANHIMU 06:31
PROVIDERS: Admitting Provider Family Medicine; Emergency Provider Emergency Medicine; PCP Internal Medicine; Visit Provider Internal Medicine
DX: I48.20 Chronic atrial fibrillation, unspecified (principal); E86.0 Dehydration; N17.9 Acute kidney failure, unspecified; R42 Dizziness and giddiness; R41.82 Altered mental status, unspecified; I95.9 Hypotension, unspecified; E87.6 Hypokalemia; R79.89 Other specified abnormal findings of blood chemistry; F10.10 Alcohol abuse, uncomplicated; R63.4 Abnormal weight loss; I10 Essential (primary) hypertension; I25.10 Atherosclerotic heart disease of native coronary artery without angina pectoris; R62.7 Adult failure to thrive; Z68.1 Body mass index [BMI] 19.9 or less, adult; Z79.82 Long term (current) use of aspirin; E78.5 Hyperlipidemia, unspecified; Z95.1 Presence of aortocoronary bypass graft
CPT/HCPCS: 36415; 70450; 71046; 76705; 80053; 80074; 81001; 82140; 82550; 82607; 82746; 83605; 83735; 84443; 85025; 85610; 85730; 86140; 87086; 87088; 93005; 93306; 94762; 96361; 96372; 96374; 97110; 97116; 97161; 97165; 97530; 99285; A9270; G0378; J1650; J3411; J7030; J7120

== ENCOUNTER 2020-12-03 14:07 | Emergency (ER) | payer BC, SELFPAY ==
[2020-12-03] VITALS (18 sets, daily range): BP systolic 119–142; BP diastolic 63–89; PULSE 36–57; RESP 0–21; TEMP 36.8; O2SAT 85–100
--- NOTE | ~2020-12-03 | US_ITS ---
EXAMINATION: US venous doppler [facility] DATE: 12/03/2020 15:11 INDICATION: Lower limb edema. TECHNIQUE: Grayscale ultrasound images without and with compression and Doppler ultrasound images of the bilateral lower extremity veins were obtained. COMPARISON: None. FINDINGS: The visualized portions of right common femoral vein, profunda (deep) femoral vein, femoral vein, pop liteal vein, peroneal veins, posterior tibial veins, and greater saphenous vein outflow are patent. The visualized portions of left common femoral vein, profunda femoral vein, femoral vein, popliteal v ein, peroneal veins, posterior tibial veins, and greater saphenous vein outflow are patent. IMPRESSION: 1. No deep venous thrombosis. Reviewed, dictated and finalized at location A. 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
--- NOTE | ~2020-12-03 | XR_ITS ---
EXAMINATION: XR chest 2V DATE: 12/03/2020 15:44 INDICATION: Atrial fibrillation and hypertension presenting with bilateral foot swelling TECHNIQUE: frontal and lateral views of the chest were obtained. COMPARISON: Chest radiograph dated 11/25/2020 FINDINGS: Interval increase in interstitial and airspace opacities in the bilateral lower lung zones. Again see n is blunting at the posterior sulci and pleural-based opacity with smooth margins at the posterior l eft lower lung zone appear to correspond to bilateral fat-containing posterior diaphragmatic hernias on prior CT dated 02/01/2019. No pneumothorax or definitive pleural effusion. Cardia mediastinal silho uette is normal. Median sternotomy wires, ostial markers and mediastinal surgical clips consistent wi th prior coronary artery bypass grafting. Bilateral old healed rib fractures. Unchanged age indetermi roel mid thoracic compression fracture which is new since 2019. IMPRESSION: 1. Increasing opacities in the bilateral lower lung zones which could represent mild pulmonary edema, atelectasis or pneumonia. 2. Pleural-based masslike opacity at the posterior left lung base most likely fat extending through t he posterior diaphragmatic hernia seen on earlier CT. Could consider repeat chest CT for confirmation . Reviewed, dictated and finalized at location B. ITY OFFICER IMPRESSION: 1. Increasing opacities in the bilateral lower lung zones which could represent mild pulmonary edema, atelectasis or pneumonia. 2. Pleural-based masslike opacity at the posterior left lung base most likely f at extending through the posterior diaphragmatic hernia seen on earlier CT. Cou ld consider repeat chest CT for confirmation.
[2020-12-03 15:15] LABS: Basophils Percent Auto 0.7 % (0.2-1.2); Eosinophils Absolute Auto 0.2 K/mm3 (0-0.3); Eosinophils Percent Auto 3.7 % (0-4.4); Hematocrit 41.2 % (42.0-52.0); Hemoglobin 13.5 g/dL (14.0-18.0); Immature Granulocyte Absolute 0.02 K/mm3 (0.00-0.031); Immature Granulocyte Percent A 0.3 % (0-0.5); Lymphocytes Absolute Auto 1.38 K/mm3 (0.9-3.2); Mean Corpuscular HGB Conc 32.8 g/dl (32-36); Mean Corpuscular Hemoglobin 31.8 pg (26-34); Mean Corpuscular Volume 97.2 fl (80-100); Mean Platelet Volume 10.2 fl (7.4-10.4); Monocytes Absolute Auto 0.7 K/mm3 (0.1-0.6); Neutrophils Absolute Auto 3.7 K/mm3 (1.3-6.7); Neutrophils Percent Auto 61.3 % (45.5-73.1); Platelet Count Result 452 k/mm3 (150-375); Red Blood Count 4.24 M/mm3 (4.6-6.20); Red Cell Distribution Width 15.6 % (11.5-14.5)
[2020-12-03 15:27] LABS: Anion Gap 0 mmol/L (8-16); Blood Urea Nitrogen 13 mg/dL (9-20); Calcium 9.1 mg/dL (8.4-10.2); Carbon Dioxide 30 mmol/L (22-30); Chloride 106 mmol/L (98-107); Estimated CRCL calculation 75 ml/min; Estimated Glomerular Filt Rate > 60; Glucose 79 mg/dL (75-110); Potassium 4.4 mmol/L (3.4-5.0); Sodium 136 mmol/L (137-145)
[2020-12-03 15:37] LABS: NT Pro B Type Natriuretic Pept 1760 PG/ML (5-100)
--- NOTE | 2020-12-03 16:09 | PC.NURSE ---
patient continues to have HR i 40's to 50's. all known per his last visit here. was seen by cardiology at that time but patient is hemodynamically stable so no pacer was indicated. meds were adjusted per daughter. alert. oriented.
--- NOTE | 2020-12-03 16:45 | PC.NURSE ---
provider in room. all test results and treatment plan discussed with patient and daughter.
--- NOTE | 2020-12-03 16:55 | ED.GENADULT ---
HPI - General Adult General Chief complaint: Extremity Problem,Nontraumatic Stated complaint: leg swelling Time Seen by Provider: 12/03/20 14:16 History of Present Illness HPI narrative: Patient is an 80-year-old male who presents ER with edema to his lower extremities. Increasing over the last few days since he was hospitalized. No chest pain or shortness of breath. No exertional dyspnea. He has not fallen struck his head. Patient is a poor historian. Family present report that he had his lisinopril discontinued and because he has chronic swelling in his feet that has now gone up to the lower aspect of his calves they became concerned that he could have a blood clot. Related Data Home Medications Medication Instructions Recorded Confirmed aspirin 81 mg PO DAILY 04/30/20 11/25/20 diazepam [Valium] 5 mg PO DAILY 04/30/20 11/25/20 docusate sodium 100 mg PO DAILY 04/30/20 11/25/20 ezetimibe [Zetia] 10 mg PO DAILY 04/30/20 11/25/20 rosuvastatin [Crestor] 20 mg PO DAILY 04/30/20 11/25/20 triamcinolone acetonide 1 applic TOPICAL BID PRN 11/25/20 11/25/20 Allergies Allergy/AdvReac Type Severity Reaction Status Date / Time Sulfa (Sulfonamide Allergy Unknown Unknown Verified 12/03/20 14:23 Antibiotics) Review of Systems Review of Systems: All systems reviewed & are unremarkable except as noted in HPI and below Constitutional: Constitutional: Denies chills, Denies fever(s) and Denies weakness ENT: Denies nasal congestion and Denies sore throat Respiratory: Respiratory: Denies cough, Denies dyspnea and Denies wheezing Gastrointestinal: Gastrointestinal: Denies nausea and Denies vomiting Musculoskeletal: Musculoskeletal: Denies joint swelling and Denies muscle cramps Comments: Lower extremity edema PMFSH Past Medical History Medical History (Updated 12/03/20 @ 16:59 by Stanton Carey MD) Alcohol abuse Atrial fibrillation, chronic CAD (coronary artery disease) HTN (hypertension) Hyperlipidemia Small bowel obstruction Surgical History Surgical History History of appendectomy History of intestinal surgery when he was 3 weeks old Hx of CABG x3v Hx of cholecystectomy Hx of exploratory laparotomy February 2019 for the SBO Family History Family History Father Cancer Other Hypertension Social History Social History Social History: Patient is a full code. He lives alone. He has never smoked. Alcohol use as mentioned above. Denies drug use. He is retired. Smoking status: Never smoker Alcohol intake: current Drinks per week: 15 Substance use: never Gender identity (if verbalized by the patient): Male Spiritual care concerns: No Exam Narrative: Exam Narrative: GENERAL: Well-appearing, well-nourished, and in no acute distress. HEAD: Normocephalic, atraumatic. CHEST: Clear to auscultation. No respiratory distress. HEART: Bradycardic and irregular regular. Normal peripheral pulses. ABDOMEN: Soft, nontender, nondistended. EXTREMITIES: Normal range of motion. 2+ edema. SKIN: Warm, dry, no rash. NEURO: Alert and oriented x3. PSYCH: Normal mood and affect. Course Course Emergency Course: Patient and family informed of results. Will not start diuretic therapy. BMP within normal limits for the patient's age. Patient has no respiratory complaints and normal lung sounds. Recommend using compression socks or Pardeep wraps to help with edema. Vital Signs Vital signs: Vital Signs Temperature 98.3 F 12/03/20 14:17 Pulse Rate 51 L 12/03/20 14:17 Respiratory Rate 16 12/03/20 14:17 Blood Pressure 134/69 12/03/20 14:17 Pulse Oximetry 98 12/03/20 14:17 Temperature 98.3 F 12/03/20 14:17 Pulse Rate 45 L 12/03/20 16:01 Respiratory Rate 20 12/03/20 16:01 Blood Pressure 127/63 12/03/20 16:01 Pu
== END 2020-12-03 17:08 | disposition home or self-care (01) ==
PROVIDERS: Emergency Provider Emergency Medicine; PCP Internal Medicine
DX: R60.0 Localized edema (principal); Z79.82 Long term (current) use of aspirin; I48.20 Chronic atrial fibrillation, unspecified; I25.10 Atherosclerotic heart disease of native coronary artery without angina pectoris; I11.0 Hypertensive heart disease with heart failure; E78.5 Hyperlipidemia, unspecified; Z95.1 Presence of aortocoronary bypass graft; R91.8 Other nonspecific abnormal finding of lung field
CPT/HCPCS: 36415; 71046; 80048; 83880; 85025; 93970; 99284

== ENCOUNTER 2020-12-12 22:35 | Emergency (ER) | payer BC, SELFPAY ==
--- NOTE | ~2020-12-12 | CT_ITS ---
EXAMINATION: CT lumbar spine wo con DATE: 12/12/2020 23:01 INDICATION: Low back pain. Fall. TECHNIQUE: Computed tomography (CT) of the lumbar spine was performed without intravenous contrast. A utomated exposure control and iterative reconstruction technique were employed. The dose-length produ ct was 242.72 mGy-cm. COMPARISON: None FINDINGS: There is a small right pleural effusion. The bladder is markedly distended. Partially visua lized are cysts in the kidneys. There is 4 mm anterolisthesis of L4 on L5 and 2 mm retrolisthesis of L2 on L3. There is a burst fracture of superior endplate of L1 with 1/5 loss of height without retrop ulsion of bone. There is mildly decreased disc height at L2-L3, moderately decreased disc height at L 3-L4 and L4-L5, and severely decreased disc height at L5-S1. The following disc levels are specifical ly discussed: L1-L2: The disc does not extend beyond the endplate margin. There is mild bilateral facet joint osteo arthritis. There is no neural foraminal stenosis. There is no central canal stenosis. L2-L3: The disc is bulging. There is moderate right and mild left facet joint osteoarthritis. There i s mild bilateral neural foraminal stenosis. There is mild central canal stenosis. L3-L4: The disc is bulging. There is moderate right and mild left facet joint osteoarthritis. There i s mild bilateral neural foraminal stenosis. There is mild central canal stenosis. L4-L5: The disc is bulging. There is severe bilateral facet joint osteoarthritis. There is moderate b ilateral neural foraminal stenosis. There is severe central canal stenosis. L5-S1: The disc is bulging. There is severe right and moderate left facet joint osteoarthritis. There is mild bilateral neural foraminal stenosis. There is mild central canal stenosis. IMPRESSION: 1. Acute versus subacute L1 burst fracture. 2. Severe lumbar spondylosis. Reviewed, dictated and finalized at location A. R BOILER
--- NOTE | ~2020-12-12 | XR_ITS ---
EXAMINATION: XR forearm RT 2V DATE: 12/12/2020 23:04 INDICATION: Right forearm injury and pain. TECHNIQUE: 2 views of right forearm were obtained. COMPARISON: Right wrist radiographs 11/16/2017 FINDINGS: Bone alignment is normal. No acute fracture. 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 Osteopenia is noted. There is mild osteoarthritis of first carpometacarpal joint. No elbow joint effusion. IMPRESSION: 1. No acute fracture. Reviewed, dictated and finalized at location A. K CAPTAIN IMPRESSION: 1. No acute fracture.
[2020-12-12 22:38] VITALS: BP 165/56; PULSE 63; RESP 18; TEMP 37.1; O2SAT 97
--- NOTE | 2020-12-12 22:57 | ED.BACK ---
HPI - Back Pain/Injury General Chief Complaint: Fall Stated Complaint: ground level fall Time Seen by Provider: 12/12/20 22:46 Source: patient Mode of arrival: ambulatory Limitations: no limitations History of Present Illness HPI Narrative: Patient is an 80-year-old male complaining of lower back pain after he tripped and fell yesterday. Patient states his pain is an 8 out of 10 aching nonradiating, able to get up and ambulate after the fall. Patient also complaining of right forearm pain when he tried to break his fall yesterday, pain is 5 out of 10, has skin tears on his right forearm. Patient denies any head, neck, chest or any other extremity pain/injury. Related Data Home Medications Medication Instructions Recorded Confirmed aspirin 81 mg PO DAILY 04/30/20 11/25/20 diazepam [Valium] 5 mg PO DAILY 04/30/20 11/25/20 docusate sodium 100 mg PO DAILY 04/30/20 11/25/20 ezetimibe [Zetia] 10 mg PO DAILY 04/30/20 11/25/20 rosuvastatin [Crestor] 20 mg PO DAILY 04/30/20 11/25/20 triamcinolone acetonide 1 applic TOPICAL BID PRN 11/25/20 11/25/20 Allergies Allergy/AdvReac Type Severity Reaction Status Date / Time Sulfa (Sulfonamide Allergy Unknown Unknown Verified 12/03/20 14:23 Antibiotics) Review of Systems Review of Systems: All systems reviewed & are unremarkable except as noted in HPI and below Constitutional: Constitutional: Denies body ache(s), Denies chills, Denies excessive sweating, Denies fatigue, Denies fever(s), Denies headache(s), Denies lethargy, Denies malaise, Denies weakness and Denies weight loss Eyes: Eyes: Denies blurry vision, Denies change in vision and Denies loss of vision ENT: Denies dizziness, Denies ear discharge, Denies headache(s), Denies lip swelling, Denies epistaxis, Denies nasal congestion, Denies neck pain, Denies throat swelling and Denies tongue swelling Cardiovascular: Cardiovascular: Denies chest pain, Denies chest pain at rest, Denies chest pain with activity, Denies diaphoresis, Denies rapid heart rate, Denies edema, Denies irregular heart rhythm, Denies lightheadedness, Denies palpitations, Denies dyspnea and Denies dyspnea on exertion Respiratory: Respiratory: Denies chest congestion, Denies cough, Denies hemoptysis, Denies dyspnea and Denies dyspnea on exertion Gastrointestinal: Gastrointestinal: Denies abdominal pain, Denies melena, Denies hematochezia, Denies diarrhea, Denies nausea, Denies vomiting and Denies hematemesis Musculoskeletal: Musculoskeletal: Denies abnormal gait, Denies deformity, Denies joint swelling, Denies limited range of motion, Denies neck pain and Denies numbness Neurologic: Denies Abnormal speech present, Denies abnormal gait, Denies confusion, Denies dizziness, Denies headache(s), Denies focal weakness, Denies loss of vision, Denies numbness, Denies Other visual disturbances, Denies Sensory deficit (Neuro) and Denies weakness Psychiatric: Psychiatric: Denies confusion, Denies depression, Denies auditory hallucinations, Denies homicidal ideation and Denies suicidal ideation Endocrine: Endocrine: Denies cold intolerance, Denies excessive sweating, Denies fatigue, Denies heat intolerance and Denies palpitations Hematologic/Lymphatic: Hematologic/Lymphatic: Denies easy bleeding and Denies easy bruising Allergic/Immunologic: Allergic/Immunologic: Denies lip swelling, Denies throat swelling and Denies tongue swelling PMFSH Past Medical History Medical History Alcohol abuse Atrial fibrillation, chronic CAD (coronary artery disease) HTN (hypertension) Hyperlipidemia Small bowel obstruction Surgical History Surgical History History of appendectomy History of intestinal surgery when he was 3 weeks old Hx of CABG x3v Hx of cholecystectomy Hx of exploratory laparotomy February 2019 for the SBO Family History Family History (Reviewed 12/12/20 @ 2
[2020-12-13 00:02] VITALS: BP 131/75; PULSE 82; RESP 16; TEMP 36.3; O2SAT 95
== END 2020-12-13 00:03 | disposition home or self-care (01) ==
PROVIDERS: Emergency Provider Emergency Medicine; PCP Internal Medicine
DX: S39.012A Strain of muscle, fascia and tendon of lower back, initial encounter (principal); S51.811A Laceration without foreign body of right forearm, initial encounter; I48.91 Unspecified atrial fibrillation; I25.10 Atherosclerotic heart disease of native coronary artery without angina pectoris; E78.5 Hyperlipidemia, unspecified; Z95.1 Presence of aortocoronary bypass graft; Z79.82 Long term (current) use of aspirin; W01.0XXA Fall on same level from slipping, tripping and stumbling without subsequent striking against object, initial encounter
CPT/HCPCS: 72131; 73090; 99284